=== PATIENT | male | born 2000 | race Caucasian/White ===

== ENCOUNTER 2022-04-19 17:03 | Emergency (ER) | payer OTHER, BC ==
[2022-04-19] MEDS ORDERED: Ibuprofen 800 MG TAB ONE (18:08)
== END 2022-04-19 18:25 | disposition home or self-care (01) ==
LOC: ERS 17:03
DX: S06.0X0A Concussion without loss of consciousness, initial encounter (principal); W01.0XXA Fall on same level from slipping, tripping and stumbling without subsequent striking against object, initial encounter
CPT/HCPCS: 99283